=== PATIENT | male | born 1930 | race Caucasian/White ===

== ENCOUNTER 2021-08-09 10:22 | Emergency (ER) | payer OTHER ==
[~2021-08-09] VITALS: Ht 177.8 cm; Wt 90.7 kg
[2021-08-09] MEDS ORDERED: ADULT LOW DOSE81 M1 PO (10:35)
[2021-08-09] MEDS ORDERED: ENALAPRIL MALE2.5 MG PO (10:35)
[2021-08-09] MEDS ORDERED: FUROSEMIDE10 MG/1 M2 PO (10:35)
[2021-08-09] MEDS ORDERED: CARDURA1 MG PO (10:36)
[2021-08-09] MEDS ORDERED: CLEOCIN HCL300 MG PO (16:38)
== END 2021-08-09 17:39 | disposition home or self-care (01) ==
LOC: ER 10:22
DX: L03.116 Cellulitis of left lower limb (principal); Z95.2 Presence of prosthetic heart valve; I87.2 Venous insufficiency (chronic) (peripheral); I10 Essential (primary) hypertension